=== PATIENT | female | born 1980 | race Caucasian/White ===

== ENCOUNTER 2020-07-09 15:03 | Emergency (ER) | payer OTHER ==
[~2020-07-09] VITALS: Ht 165.1 cm; Wt 86.4 kg
[2020-07-09 15:04] VITALS: BP 137/79
[2020-07-09] MEDS ORDERED: INHALER IH (15:07)
[2020-07-09] MEDS ORDERED: PredniSONE 20 MG TABLET PO ONE (15:30)
[2020-07-09] MEDS ORDERED: ALBUTEROL SULFATE HFA 90 MCG/PUFF 8 GM INHALER IH ONE (15:30)
[2020-07-09 17:21] LABS: COVID AG,FIA SOURCE NASOPHARYNGEAL
== END 2020-07-09 18:17 | disposition home or self-care (01) ==
LOC: EMS 15:04
DX: R05 Cough (principal); R06.02 Shortness of breath; R07.89 Other chest pain; J45.909 Unspecified asthma, uncomplicated; Z20.828 Contact with and (suspected) exposure to other viral communicable diseases
CPT/HCPCS: 71045; 87426; 94640; 99284; J7512; U0003; J3535

== ENCOUNTER 2022-11-06 14:05 | Emergency (ER) | payer MEDICAID, OTHER ==
[~2022-11-06] VITALS: Ht 154.9 cm; Wt 84.1 kg
[~2022-11-06 14:05] MED LIST: INHALER IH
[2022-11-06] MEDS ORDERED: ALBU8HFA IH (14:10)
[2022-11-06] MEDS ORDERED: PredniSONE 20 MG TABLET PO ONE (15:00)
[2022-11-06] MEDS ORDERED: ALBUTEROL SULFATE 2.5 MG/0.5 ML NEB SOLUTION NEB ONE (15:00)
[2022-11-06] MEDS ORDERED: ACETAMINOPHEN 500 MG TABLET PO ONE (15:00)
[2022-11-06] MEDS ORDERED: IPRATROPIUM BROMIDE 0.5 MG/2.5 ML NEB SOLUTION NEB ONE (15:00)
[2022-11-06 15:06] LABS: BASOPHILS % (AUTO) 0.9 % (0.0-2.0); HEMATOCRIT 37.2 % (36-46); HEMOGLOBIN 12.7 g/dL (12.0-16.0); LYMPHOCYTES # (AUTO) 5.2 K/uL (1.0-4.8); LYMPHOCYTES % (AUTO) 42.5 % (22.0-44.0); MEAN CORPUSCULAR HEMOGLOBIN 30.5 pg (26.0-34.0); MEAN CORPUSCULAR HGB CONC 34.1 G/dL (31.0-37.0); MEAN CORPUSCULAR VOLUME 90 fL (80-100); MONOCYTES # (AUTO) 0.7 K/uL (0.1-1.0); NEUTROPHILS # (AUTO) 5.8 K/uL (1.8-7.7); NEUTROPHILS % (AUTO) 47.6 % (40.0-70.0); PLATELET COUNT (AUTO) 369 K/uL (150-450); RED BLOOD CELL COUNT(AUTO) 4.16 MIL/uL (4.00-5.20); RED CELL DISTRIBUTION WIDTH 13.9 % (11.5-14.5)
[2022-11-06] MEDS ORDERED: 0.9% SODIUM CHLORIDE 5 ML NEB SOLUTION NEB ONE (15:18)
[2022-11-06 15:20] LABS: ANION GAP 8 mmol/L (8-16); CALCIUM, TOTAL 8.2 mg/dL (8.8-10.5); CARBON DIOXIDE 25 mmol/L (22-29); CHLORIDE 101 mmol/L (98-107); CREATININE 0.67 mg/dL (0.60-1.30); GLUCOSE,RANDOM 188 mg/dL (70-110); POTASSIUM 3.5 mmol/L (3.5-5.1); SODIUM SERUM 134 mmol/L (136-145); UREA NITROGEN, BLOOD 15 mg/dL (7-18)
[2022-11-06 15:27] LABS: ALANINE AMINOTRANSFERASE 55 U/L (12-78); ALBUMIN 3.1 g/dL (3.4-5.0); ALKALINE PHOSPHATASE 49 U/L (46-116); ASPARTATE AMINOTRANSFERASE 27 U/L (15-37); BILIRUBIN,TOTAL 0.7 mg/dL (0.1-1.0); CREATINE KINASE, TOTAL ONLY 29 U/L (26-192); TOTAL PROTEIN, SERUM 6.8 g/dL (6.4-8.2)
[2022-11-06 15:27] LABS: COVID AG,FIA SOURCE NASOPHARYNGEAL
[2022-11-06 15:28] LABS: GLOMERULAR FILTR. RATE CALC > 60 mL/min (>60)
[2022-11-06 15:29] LABS: B-TYPE NATRIURETIC PEPTIDE 11 pg/mL (0-100)
[2022-11-06 15:51] LABS: INFLUENZA TYPE A NEGATIVE FOR TYPE A (NEGATIVE); INFLUENZA TYPE B NEGATIVE FOR TYPE B (NEGATIVE)
[2022-11-06] MEDS ORDERED: PRED-554 PO (16:06)
[2022-11-06 16:15] LABS: HCG,QUANTITATIVE < 1 mIU/mL (0-6)
[2022-11-06] MEDS ORDERED: ALBUTEROL SULFATE HFA 90 MCG/PUFF 8 GM INHALER IH ONE (16:30)
[2022-11-06 16:31] VITALS: BP 143/72
== END 2022-11-06 16:52 | disposition home or self-care (01) ==
LOC: EMS 14:07
DX: J45.909 Unspecified asthma, uncomplicated (principal); Z98.890 Other specified postprocedural states; Z20.822 Contact with and (suspected) exposure to COVID-19
CPT/HCPCS: 99285; 71045; 87426; 80053; 82550; 83880; 84484; 84702; 85025; 87804; 36415; 94640; 93005; J7512; J3535; J7613

== ENCOUNTER 2022-12-26 17:21 | Emergency (ER) | payer MEDICAID ==
[~2022-12-26] VITALS: Ht 152.4 cm; Wt 81.8 kg
[~2022-12-26 17:21] MED LIST changes: +ALBU8HFA IH; -INHALER IH; +PRED-554 PO
[2022-12-26 17:41] LABS: GLUCOMETER DEV NAME(LOC) ERT.5; GLUCOSE,POINT OF CARE 287 MG/DL (70-110)
[2022-12-26] MEDS ORDERED: IOHEXOL 350 MG/ML 100 ML VIAL ONE ×2 (17:53→20:02)
[2022-12-26] MEDS ORDERED: SODIUM CHLORIDE 0.9% 100 ML ONE ×2 (17:53→20:02)
[2022-12-26 17:59] LABS: BASOPHILS % (AUTO) 1.1 % (0.0-2.0); EOSINOPHILS % (AUTO) 8.2 % (1.0-6.0); HEMATOCRIT 39.5 % (36-46); LYMPHOCYTES % (AUTO) 25.6 % (22.0-44.0); MEAN CORPUSCULAR HEMOGLOBIN 31.5 pg (26.0-34.0); MEAN CORPUSCULAR HGB CONC 35.5 G/dL (31.0-37.0); MEAN CORPUSCULAR VOLUME 89 fL (80-100); MONOCYTES # (AUTO) 0.8 K/uL (0.1-1.0); MONOCYTES % (AUTO) 10.2 % (2.0-9.0); NEUTROPHILS # (AUTO) 4.2 K/uL (1.8-7.7); NEUTROPHILS % (AUTO) 54.9 % (40.0-70.0); PLATELET COUNT (AUTO) 304 K/uL (150-450); RED BLOOD CELL COUNT(AUTO) 4.45 MIL/uL (4.00-5.20); RED CELL DISTRIBUTION WIDTH 13.5 % (11.5-14.5)
[2022-12-26 18:07] LABS: ANION GAP 15 mmol/L (8-16); CALCIUM, TOTAL 9.3 mg/dL (8.8-10.5); CARBON DIOXIDE 20 mmol/L (22-29); CHLORIDE 95 mmol/L (98-107); CREATININE 0.74 mg/dL (0.60-1.30); GLOMERULAR FILTR. RATE CALC > 60 mL/min (>60); GLUCOSE,RANDOM 321 mg/dL (70-110); POTASSIUM 4.6 mmol/L (3.5-5.1); SODIUM SERUM 130 mmol/L (136-145); UREA NITROGEN, BLOOD 13 mg/dL (7-18)
[2022-12-26 18:11] LABS: COVID AG,FIA SOURCE NASOPHARYNGEAL
[2022-12-26 18:20] LABS: ACETONE,BLOOD NEGATIVE (NEGATIVE)
[2022-12-26 18:27] LABS: ALBUMIN 3.6 g/dL (3.4-5.0); ALKALINE PHOSPHATASE 66 U/L (46-116); BILIRUBIN,TOTAL 1.2 mg/dL (0.1-1.0); HCG,QUANTITATIVE < 1 mIU/mL (0-6); LIPASE 65 U/L (73-393); PHOSPHORUS 3.3 mg/dL (2.5-4.9)
[2022-12-26] MEDS ORDERED: SODIUM CHLORIDE 0.9% 1,000 ML IV ONE (18:30)
[2022-12-26 18:50] LABS: ALANINE AMINOTRANSFERASE 126 U/L (12-78)
[2022-12-26 18:52] LABS: CHOL/HDL RATIO 9.3 (3.9-5.7); CHOLESTEROL 243 mg/dL (131-200); HDL CHOLESTEROL 26 mg/dL (40-60); TRIGLYCERIDES 1312 mg/dL (15-150)
[2022-12-26 19:03] LABS: INFLUENZA TYPE A NEGATIVE FOR TYPE A (NEGATIVE); INFLUENZA TYPE B NEGATIVE FOR TYPE B (NEGATIVE)
[2022-12-26 19:05] LABS: ASPARTATE AMINOTRANSFERASE 102 U/L (15-37)
[2022-12-26 21:01] LABS: APPEARANCE,URINE CLEAR (CLEAR); BILIRUBIN,URINE NEGATIVE (NEGATIVE); GLUCOSE, URINE (UA) >=1000 mg/dL (NEGATIVE); KETONES,URINE 40-60 mg/dL (NEGATIVE); LEUKOCYTE ESTERASE ,URINE NEGATIVE (NEGATIVE); NITRATE,URINE NEGATIVE (NEGATIVE); OCCULT BLOOD,URINE LARGE (NEGATIVE); PH,URINE 5.5 (5.0-8.0); PROTEIN,URINE 100-200,SEE CONFIRM mg/dL (NEGATIVE); SPECIFIC GRAVITIY, URINE 1.047 (1.003-1.030); UROBILINOGEN,URINE <=1.0 mg/dL (<=1.0)
[2022-12-26 21:24] LABS: BACTERIA,URINE Few /HPF (None Seen); COARSE GRANULAR CASTS,URINE 0-2 /LPF (None Seen); SQUAMOUS EPITHELIAL CELL,UR Few /LPF (None Seen); SULFOSALICYLIC ACID,URINE 1+ (Negative); WBC,URINE 0-2 /HPF (0-5)
[2022-12-26 21:41] LABS: GLUCOSE,POINT OF CARE 233 MG/DL (70-110)
[2022-12-26 22:25] VITALS: BP 132/80
== END 2022-12-26 22:30 | disposition home or self-care (01) ==
LOC: EMS 17:23
DX: R73.9 Hyperglycemia, unspecified (principal); E78.1 Pure hyperglyceridemia; J45.909 Unspecified asthma, uncomplicated; Z98.890 Other specified postprocedural states; Z20.822 Contact with and (suspected) exposure to COVID-19
CPT/HCPCS: 99285; 70450; 96360; 87426; 80061; 80053; 81001; 82009; 82550; 82962; 83605; 83690; 83735; 84100; 84484; 84702; 85025; 87804; 36415; 74177; 93005; Q9967; J7030; J7050; 81002

== ENCOUNTER 2023-01-26 15:37 | Emergency (ER) | payer MEDICAID ==
[~2023-01-26] VITALS: Ht 154.9 cm; Wt 81.8 kg
[~2023-01-26 15:37] MED LIST changes: +ALBU18HF12 IH; -ALBU8HFA IH
[2023-01-26] MEDS ORDERED: METF-1211 PO (15:48)
[2023-01-26 15:49] VITALS: BP 140/89
[2023-01-26 16:45] LABS: BASOPHILS % (AUTO) 0.7 % (0.0-2.0); EOSINOPHILS % (AUTO) 5.2 % (1.0-6.0); HEMATOCRIT 37.7 % (36-46); HEMOGLOBIN 12.8 g/dL (12.0-16.0); LYMPHOCYTES # (AUTO) 3.5 K/uL (1.0-4.8); LYMPHOCYTES % (AUTO) 45.6 % (22.0-44.0); MEAN CORPUSCULAR HEMOGLOBIN 30.6 pg (26.0-34.0); MEAN CORPUSCULAR VOLUME 90 fL (80-100); MONOCYTES # (AUTO) 0.8 K/uL (0.1-1.0); MONOCYTES % (AUTO) 9.7 % (2.0-9.0); NEUTROPHILS % (AUTO) 38.8 % (40.0-70.0); PLATELET COUNT (AUTO) 389 K/uL (150-450); RED BLOOD CELL COUNT(AUTO) 4.18 MIL/uL (4.00-5.20); RED CELL DISTRIBUTION WIDTH 13.2 % (11.5-14.5)
[2023-01-26 16:53] LABS: ANION GAP 11 mmol/L (8-16); CALCIUM, TOTAL 10.3 mg/dL (8.8-10.5); CARBON DIOXIDE 23 mmol/L (22-29); CHLORIDE 101 mmol/L (98-107); CREATININE 0.56 mg/dL (0.60-1.30); GLOMERULAR FILTR. RATE CALC > 60 mL/min (>60); GLUCOSE,RANDOM 123 mg/dL (70-110); SODIUM SERUM 135 mmol/L (136-145); UREA NITROGEN, BLOOD 18 mg/dL (7-18)
[2023-01-26 16:58] LABS: ALANINE AMINOTRANSFERASE 104 U/L (12-78); ALBUMIN 4.2 g/dL (3.4-5.0); ALKALINE PHOSPHATASE 47 U/L (46-116); ASPARTATE AMINOTRANSFERASE 61 U/L (15-37); BILIRUBIN,TOTAL 0.6 mg/dL (0.1-1.0); LIPASE 164 U/L (73-393)
[2023-01-26] MEDS ORDERED: MORPHINE SULFATE 2 MG/ML SYRINGE IVP ONE (19:30)
[2023-01-26] MEDS ORDERED: KETOROLAC TROMETHAMINE 30 MG/ML VIAL IVP ONE (19:30)
[2023-01-26] MEDS ORDERED: ONDANSETRON HCL 4 MG/2 ML VIAL IVP ONE (19:30)
[2023-01-26] MEDS ORDERED: FAMOTIDINE 10 MG/ML 2 ML VIAL IVP ONE (19:30)
[2023-01-26] MEDS ORDERED: MAG HYDROX/AL HYDROX/SIMETH 30 ML SUSP UDCUP PO ONE (19:30)
[2023-01-26] MEDS ORDERED: IOHEXOL 350 MG/ML 100 ML VIAL ONE (19:43)
[2023-01-26] MEDS ORDERED: SODIUM CHLORIDE 0.9% 100 ML ONE (19:43)
[2023-01-26 20:22] LABS: APPEARANCE,URINE HAZY (CLEAR); BILIRUBIN,URINE NEGATIVE (NEGATIVE); GLUCOSE, URINE (UA) NEGATIVE (NEGATIVE); KETONES,URINE TRACE mg/dL (NEGATIVE); LEUKOCYTE ESTERASE ,URINE MODERATE (NEGATIVE); NITRATE,URINE NEGATIVE (NEGATIVE); OCCULT BLOOD,URINE LARGE (NEGATIVE); PROTEIN,URINE 30-70 mg/dL (NEGATIVE); SPECIFIC GRAVITIY, URINE 1.025 (1.003-1.030); UROBILINOGEN,URINE <=1.0 mg/dL (<=1.0)
[2023-01-26 20:42] LABS: BACTERIA,URINE Moderate /HPF (None Seen); SQUAMOUS EPITHELIAL CELL,UR Many /LPF (None Seen)
[2023-01-26] MEDS ORDERED: CEPH-558 PO (21:33)
[2023-01-26] MEDS ORDERED: CefTRIAXone 1 GM/DEXTROSE 50 ML IV ONE (21:45)
[2023-01-26] MEDS ORDERED: CEPHALEXIN MONOHYDRATE 500 MG CAPSULE PO ONE (22:00)
== END 2023-01-26 22:30 | disposition home or self-care (01) ==
LOC: EMS 15:40
DX: N12 Tubulo-interstitial nephritis, not specified as acute or chronic (principal); J45.909 Unspecified asthma, uncomplicated; E11.9 Type 2 diabetes mellitus without complications; I10 Essential (primary) hypertension; Z98.890 Other specified postprocedural states
CPT/HCPCS: 99285; 74177; 96374; 96375; 76705; 80053; 81001; 82962; 83690; 84703; 85025; 36415; 87086; 87186; J0696; J3490; J1885; J2270; J2405; Q9967; J7050

== ENCOUNTER 2023-03-13 14:43 | Emergency (ER) | payer MEDICAID ==
[~2023-03-13] VITALS: Ht 152.4 cm; Wt 84.1 kg
[~2023-03-13 14:43] MED LIST changes: +CEPH-558 PO; +METF-1211 PO; -PRED-554 PO
[2023-03-13] MEDS ORDERED: GEMF-77 PO (14:54)
[2023-03-13] MEDS ORDERED: CIPR500T10 PO (14:54)
[2023-03-13] MEDS ORDERED: htn PO (14:56)
[2023-03-13] MEDS ORDERED: SODIUM CHLORIDE 0.9% 1,000 ML IV ONE (15:45)
[2023-03-13] MEDS ORDERED: FAMOTIDINE 40 MG in SODIUM CHLORIDE 0.9% 100 ML IV ONE (16:00)
[2023-03-13 17:27] LABS: BASOPHILS % (AUTO) 0.4 % (0.0-2.0); EOSINOPHILS % (AUTO) 3.4 % (1.0-6.0); HEMATOCRIT 40.9 % (36-46); HEMOGLOBIN 13.8 g/dL (12.0-16.0); LYMPHOCYTES # (AUTO) 3.6 K/uL (1.0-4.8); LYMPHOCYTES % (AUTO) 38.3 % (22.0-44.0); MEAN CORPUSCULAR HEMOGLOBIN 29.9 pg (26.0-34.0); MEAN CORPUSCULAR HGB CONC 33.7 G/dL (31.0-37.0); MEAN CORPUSCULAR VOLUME 89 fL (80-100); MONOCYTES # (AUTO) 0.9 K/uL (0.1-1.0); MONOCYTES % (AUTO) 9.1 % (2.0-9.0); NEUTROPHILS # (AUTO) 4.6 K/uL (1.8-7.7); NEUTROPHILS % (AUTO) 48.8 % (40.0-70.0); PLATELET COUNT (AUTO) 417 K/uL (150-450); RED BLOOD CELL COUNT(AUTO) 4.61 MIL/uL (4.00-5.20)
[2023-03-13 17:31] LABS: ANION GAP 11 mmol/L (8-16); CALCIUM, TOTAL 10.7 mg/dL (8.8-10.5); CARBON DIOXIDE 25 mmol/L (22-29); CHLORIDE 100 mmol/L (98-107); GLOMERULAR FILTR. RATE CALC > 60 mL/min (>60); GLUCOSE,RANDOM 139 mg/dL (70-110); SODIUM SERUM 136 mmol/L (136-145)
[2023-03-13 17:43] LABS: ALANINE AMINOTRANSFERASE 111 U/L (12-78); ALKALINE PHOSPHATASE 46 U/L (46-116); ASPARTATE AMINOTRANSFERASE 45 U/L (15-37); BILIRUBIN,TOTAL 0.8 mg/dL (0.1-1.0); HCG,QUANTITATIVE < 1 mIU/mL (0-6); LIPASE 122 U/L (73-393); TOTAL PROTEIN, SERUM 8.2 g/dL (6.4-8.2)
[2023-03-13 17:45] VITALS: BP 132/82
[2023-03-13 17:51] LABS: APPEARANCE,URINE TURBID (CLEAR); BILIRUBIN,URINE NEGATIVE (NEGATIVE); GLUCOSE, URINE (UA) NEGATIVE (NEGATIVE); LEUKOCYTE ESTERASE ,URINE LARGE (NEGATIVE); NITRATE,URINE NEGATIVE (NEGATIVE); OCCULT BLOOD,URINE SMALL (NEGATIVE); PH,URINE 5.5 (5.0-8.0); PROTEIN,URINE 30-70 mg/dL (NEGATIVE); SPECIFIC GRAVITIY, URINE 1.022 (1.003-1.030); UROBILINOGEN,URINE <=1.0 mg/dL (<=1.0)
[2023-03-13] MEDS ORDERED: CIPROFLOXACIN 400 MG/D5% WATER 200 ML IV ONE (18:15)
[2023-03-13 18:24] LABS: BACTERIA,URINE Few /HPF (None Seen); SQUAMOUS EPITHELIAL CELL,UR Moderate /LPF (None Seen)
== END 2023-03-13 19:48 | disposition home or self-care (01) ==
LOC: EMS 14:45
DX: R10.11 Right upper quadrant pain (principal); K59.00 Constipation, unspecified; N39.0 Urinary tract infection, site not specified; K29.70 Gastritis, unspecified, without bleeding
CPT/HCPCS: 99285; 96365; 76705; 96366; 80053; 81001; 83690; 84702; 85025; 36415; 87086; 87186; 74022; 93005; J0744; J3490; J7030; J7050

== ENCOUNTER 2023-11-07 22:19 | Emergency (ER) | payer MEDICAID ==
[~2023-11-07] VITALS: Ht 152.4 cm; Wt 81.8 kg
[~2023-11-07 22:19] MED LIST changes: -CEPH-558 PO; +CIPR500T10 PO; +GEMF-77 PO; +htn PO
[2023-11-07 22:26] VITALS: TEMP 98.8
[2023-11-07 22:46] LABS: GLUCOMETER DEV NAME(LOC) ER.6; GLUCOSE,POINT OF CARE 126 MG/DL (70-110)
[2023-11-07] MEDS ORDERED: ONDANSETRON HCL 4 MG TABLET PO ONE (23:00)
[2023-11-07] MEDS ORDERED: FAMOTIDINE 20 MG TABLET PO ONE (23:00)
[2023-11-07] MEDS ORDERED: ALBUTEROL SULFATE 2.5 MG/0.5 ML NEB SOLUTION NEB ONE (23:00)
[2023-11-07] MEDS ORDERED: MAG HYDROX/ALUMINUM HYD/SIMETH 30 ML SUSPENSION UDCUP PO ONE (23:00)
[2023-11-07] MEDS ORDERED: IPRATROPIUM BROMIDE 0.5 MG/2.5 ML NEB SOLUTION NEB ONE (23:00)
[2023-11-07] MEDS ORDERED: ACETAMINOPHEN 500 MG TABLET PO ONE (23:00)
[2023-11-07 23:14] LABS: BASOPHILS % (AUTO) 0.8 % (0.0-2.0); EOSINOPHILS % (AUTO) 7.8 % (1.0-6.0); HEMATOCRIT 41.1 % (36-46); LYMPHOCYTES # (AUTO) 4.6 K/uL (1.0-4.8); LYMPHOCYTES % (AUTO) 41.1 % (22.0-44.0); MEAN CORPUSCULAR HEMOGLOBIN 29.8 pg (26.0-34.0); MEAN CORPUSCULAR VOLUME 88 fL (80-100); MONOCYTES % (AUTO) 9.2 % (2.0-9.0); NEUTROPHILS # (AUTO) 4.6 K/uL (1.8-7.7); NEUTROPHILS % (AUTO) 41.1 % (40.0-70.0); PLATELET COUNT (AUTO) 397 K/uL (150-450); RED BLOOD CELL COUNT(AUTO) 4.69 MIL/uL (4.00-5.20); RED CELL DISTRIBUTION WIDTH 13.4 % (11.5-14.5); WHITE BLOOD COUNT (AUTO) 11.1 K/uL (4.5-11.0)
[2023-11-07] MEDS ORDERED: PredniSONE 20 MG TABLET PO ONE (23:15)
[2023-11-07 23:20] VITALS: PULSE 87; RESP 20; O2SAT 95
[2023-11-07 23:24] LABS: ANION GAP 14 mmol/L (8-16); CARBON DIOXIDE 22 mmol/L (22-29); CHLORIDE 102 mmol/L (98-107); GLOMERULAR FILTR. RATE CALC > 60 mL/min (>60); GLUCOSE,RANDOM 125 mg/dL (70-110); POTASSIUM 3.8 mmol/L (3.5-5.1); SODIUM SERUM 138 mmol/L (136-145); UREA NITROGEN, BLOOD 12 mg/dL (7-18)
[2023-11-07 23:30] LABS: ALANINE AMINOTRANSFERASE 47 U/L (12-78); ALBUMIN 3.9 g/dL (3.4-5.0); ALKALINE PHOSPHATASE 38 U/L (46-116); ASPARTATE AMINOTRANSFERASE 18 U/L (15-37); BILIRUBIN,TOTAL 0.7 mg/dL (0.1-1.0); TOTAL PROTEIN, SERUM 7.7 g/dL (6.4-8.2)
[2023-11-07 23:32] LABS: TROPONIN I-HIGH SENSITIVITY 8 ng/L (<51)
[2023-11-07 23:52] LABS: B-TYPE NATRIURETIC PEPTIDE < 5 pg/mL (0-100); LIPASE 46 U/L (16-77)
[2023-11-08 01:21] VITALS: BP 110/65; PULSE 88; RESP 18
== END 2023-11-08 01:23 | disposition home or self-care (01) ==
LOC: EMS 22:20
DX: R11.2 Nausea with vomiting, unspecified (principal); R07.89 Other chest pain; J45.909 Unspecified asthma, uncomplicated; E11.9 Type 2 diabetes mellitus without complications; E78.00 Pure hypercholesterolemia, unspecified; I10 Essential (primary) hypertension; Z98.890 Other specified postprocedural states
CPT/HCPCS: 99285; 71045; 80053; 82962; 83690; 83880; 84484; 84703; 85025; 36415; 93005; Q0162; J7613

== ENCOUNTER 2024-03-31 21:46 | Emergency (ER) | payer MEDICAID ==
[~2024-03-31] VITALS: Ht 152.4 cm; Wt 81.8 kg
[2024-03-31 21:57] VITALS: TEMP 97.9
[2024-03-31] MEDS ORDERED: DULO-113 PO (21:59)
[2024-03-31] MEDS ORDERED: SEMA1PEN3 SQ (21:59)
[2024-03-31] MEDS ORDERED: ATOR40TA71 PO (21:59)
[2024-03-31] MEDS ORDERED: LISI5TAB21 PO (21:59)
[2024-03-31 22:51] LABS: BASOPHILS % (AUTO) 1.2 % (0.0-2.0); EOSINOPHILS % (AUTO) 5.9 % (1.0-6.0); HEMATOCRIT 35.1 % (36-46); HEMOGLOBIN 12.1 g/dL (12.0-16.0); LYMPHOCYTES # (AUTO) 4.6 K/uL (1.0-4.8); LYMPHOCYTES % (AUTO) 40.9 % (22.0-44.0); MEAN CORPUSCULAR HEMOGLOBIN 30.7 pg (26.0-34.0); MEAN CORPUSCULAR HGB CONC 34.6 G/dL (31.0-37.0); MEAN CORPUSCULAR VOLUME 89 fL (80-100); MONOCYTES # (AUTO) 0.9 K/uL (0.1-1.0); MONOCYTES % (AUTO) 7.8 % (2.0-9.0); NEUTROPHILS % (AUTO) 44.2 % (40.0-70.0); PLATELET COUNT (AUTO) 345 K/uL (150-450); RED BLOOD CELL COUNT(AUTO) 3.96 MIL/uL (4.00-5.20); RED CELL DISTRIBUTION WIDTH 13.3 % (11.5-14.5); WHITE BLOOD COUNT (AUTO) 11.3 K/uL (4.5-11.0)
[2024-03-31 22:56] LABS: ANION GAP 13 mmol/L (8-16); CALCIUM, TOTAL 8.5 mg/dL (8.8-10.5); CARBON DIOXIDE 23 mmol/L (22-29); CHLORIDE 104 mmol/L (98-107); CREATININE 0.72 mg/dL (0.60-1.30); GLOMERULAR FILTR. RATE CALC > 60 mL/min (>60); GLUCOSE,RANDOM 156 mg/dL (70-110); POTASSIUM 3.5 mmol/L (3.5-5.1); SODIUM SERUM 140 mmol/L (136-145); UREA NITROGEN, BLOOD 7 mg/dL (7-18)
[2024-03-31 23:07] LABS: HCG,QUANTITATIVE 1 mIU/mL (0-6); LIPASE 37 U/L (16-77)
[2024-04-01] MEDS: ONDANSETRON HCL 4 MG/2 ML VIAL IVP ONE (00:08)
[2024-04-01] MEDS: KETOROLAC TROMETHAMINE 30 MG/ML VIAL IVP ONE (00:09)
[2024-04-01] MEDS: SODIUM CHLORIDE 0.9% 1,000 ML IV ONE (00:09)
[2024-04-01] MEDS: DIPHENOXYLATE/ATROP 2.5-0.025 MG TABLET PO ONE (00:09)
[2024-04-01] MEDS: POTASSIUM CHLORIDE 20 MEQ ER TABLET PO ONE (00:15)
[2024-04-01] MEDS ORDERED: DIPH-1130 PO (01:11)
[2024-04-01] MEDS ORDERED: ONDA-104 PO (01:11)
[2024-04-01] MEDS ORDERED: ACET-66 PO (01:11)
[2024-04-01 01:40] VITALS: BP 138/88; PULSE 84; RESP 16
== END 2024-04-01 01:41 | disposition home or self-care (01) ==
LOC: EMS 21:59
DX: R19.7 Diarrhea, unspecified (principal); E11.43 Type 2 diabetes mellitus with diabetic autonomic (poly)neuropathy; K31.84 Gastroparesis; E11.40 Type 2 diabetes mellitus with diabetic neuropathy, unspecified; J45.909 Unspecified asthma, uncomplicated; E11.9 Type 2 diabetes mellitus without complications; I10 Essential (primary) hypertension
CPT/HCPCS: 99284; 80048; 83690; 84702; 85025; 36415; 96374; 96361; 96375; J1885; J2405; J7030

== ENCOUNTER 2024-06-19 04:08 | Emergency (ER) | payer MEDICAID ==
[~2024-06-19] VITALS: Ht 152.4 cm; Wt 81.8 kg
[~2024-06-19 04:08] MED LIST changes: +ACET-66 PO; +ATOR40TA71 PO; -CIPR500T10 PO; +DIPH-1130 PO; +DULO-113 PO; -GEMF-77 PO; +LISI5TAB21 PO; +ONDA-104 PO; +SEMA1PEN3 SQ
[2024-06-19 04:10] VITALS: TEMP 97.8
[2024-06-19 05:33] LABS: BASOPHILS % (AUTO) 0.7 % (0.0-2.0); EOSINOPHILS % (AUTO) 5.1 % (1.0-6.0); HEMATOCRIT 38.7 % (36-46); HEMOGLOBIN 13.3 g/dL (12.0-16.0); LYMPHOCYTES # (AUTO) 3.9 K/uL (1.0-4.8); LYMPHOCYTES % (AUTO) 35.4 % (22.0-44.0); MEAN CORPUSCULAR HGB CONC 34.4 G/dL (31.0-37.0); MEAN CORPUSCULAR VOLUME 90 fL (80-100); MONOCYTES # (AUTO) 1.2 K/uL (0.1-1.0); MONOCYTES % (AUTO) 10.9 % (2.0-9.0); NEUTROPHILS # (AUTO) 5.3 K/uL (1.8-7.7); NEUTROPHILS % (AUTO) 47.9 % (40.0-70.0); PLATELET COUNT (AUTO) 311 K/uL (150-450); RED CELL DISTRIBUTION WIDTH 13.8 % (11.5-14.5)
[2024-06-19] MEDS: SODIUM CHLORIDE 0.9% 1,000 ML IV ONE (05:42)
[2024-06-19 05:44] LABS: ANION GAP 15 mmol/L (8-16); CARBON DIOXIDE 21 mmol/L (22-29); CHLORIDE 99 mmol/L (98-107); CREATININE 0.71 mg/dL (0.60-1.30); GLOMERULAR FILTR. RATE CALC > 60 mL/min (>60); GLUCOSE,RANDOM 237 mg/dL (70-110); POTASSIUM 3.8 mmol/L (3.5-5.1); SODIUM SERUM 135 mmol/L (136-145); UREA NITROGEN, BLOOD 13 mg/dL (7-18)
[2024-06-19 05:47] LABS: ACETONE,BLOOD NEGATIVE (NEGATIVE)
[2024-06-19 05:49] LABS: ALANINE AMINOTRANSFERASE 64 U/L (12-78); ALBUMIN 3.6 g/dL (3.4-5.0); ALKALINE PHOSPHATASE 43 U/L (46-116); ASPARTATE AMINOTRANSFERASE 24 U/L (15-37); BILIRUBIN,TOTAL 0.7 mg/dL (0.1-1.0); TOTAL PROTEIN, SERUM 7.4 g/dL (6.4-8.2)
[2024-06-19] MEDS: ONDANSETRON 4 MG TABLET PO ONE (05:54)
[2024-06-19 06:53] VITALS: BP 145/76; PULSE 81; RESP 16; O2SAT 94
== END 2024-06-19 09:08 | disposition home or self-care (01) ==
LOC: EMS 04:08
DX: E11.40 Type 2 diabetes mellitus with diabetic neuropathy, unspecified (principal); R10.9 Unspecified abdominal pain; J45.909 Unspecified asthma, uncomplicated; I10 Essential (primary) hypertension
CPT/HCPCS: 99284; 96360; 76705; 80053; 82009; 84703; 85025; 36415; 82962; Q0162; J7030

== ENCOUNTER 2024-11-17 20:22 | Emergency (ER) | payer MEDICAID ==
[~2024-11-17] VITALS: Ht 152.4 cm; Wt 88.6 kg
[2024-11-17 20:52] VITALS: BP 148/93; PULSE 87; RESP 16; TEMP 98.8; O2SAT 98
[2024-11-17 21:47] LABS: BASOPHILS % (AUTO) 0.7 % (0.0-2.0); EOSINOPHILS % (AUTO) 3.7 % (1.0-6.0); HEMATOCRIT 40.7 % (36-46); HEMOGLOBIN 13.7 g/dL (12.0-16.0); LYMPHOCYTES # (AUTO) 3.5 K/uL (1.0-4.8); LYMPHOCYTES % (AUTO) 28.6 % (22.0-44.0); MEAN CORPUSCULAR HEMOGLOBIN 29.9 pg (26.0-34.0); MEAN CORPUSCULAR HGB CONC 33.6 G/dL (31.0-37.0); MEAN CORPUSCULAR VOLUME 89 fL (80-100); MONOCYTES % (AUTO) 8.2 % (2.0-9.0); NEUTROPHILS # (AUTO) 7.2 K/uL (1.8-7.7); NEUTROPHILS % (AUTO) 58.8 % (40.0-70.0); PLATELET COUNT (AUTO) 331 K/uL (150-450); RED BLOOD CELL COUNT(AUTO) 4.57 MIL/uL (4.00-5.20); RED CELL DISTRIBUTION WIDTH 14.3 % (11.5-14.5); WHITE BLOOD COUNT (AUTO) 12.2 K/uL (4.5-11.0)
[2024-11-17 21:58] LABS: ANION GAP 10 mmol/L (8-16); CALCIUM, TOTAL 9.1 mg/dL (8.8-10.5); CARBON DIOXIDE 25 mmol/L (22-29); CHLORIDE 104 mmol/L (98-107); CREATININE 0.81 mg/dL (0.60-1.30); GLOMERULAR FILTR. RATE CALC > 60 mL/min (>60); GLUCOSE,RANDOM 144 mg/dL (70-110); POTASSIUM 3.7 mmol/L (3.5-5.1); SODIUM SERUM 139 mmol/L (136-145); UREA NITROGEN, BLOOD 10 mg/dL (7-18)
[2024-11-17 22:04] LABS: ALANINE AMINOTRANSFERASE 47 U/L (12-78); ALBUMIN 3.5 g/dL (3.4-5.0); ALKALINE PHOSPHATASE 45 U/L (46-116); ASPARTATE AMINOTRANSFERASE 23 U/L (15-37); BILIRUBIN,TOTAL 0.6 mg/dL (0.1-1.0); TOTAL PROTEIN, SERUM 7.5 g/dL (6.4-8.2)
[2024-11-17 22:14] LABS: ALANINE AMINOTRANSFERASE 50 U/L (12-78); ALBUMIN 3.5 g/dL (3.4-5.0); ALKALINE PHOSPHATASE 46 U/L (46-116); AMYLASE 40 U/L (25-115); ASPARTATE AMINOTRANSFERASE 25 U/L (15-37); BILIRUBIN,TOTAL 0.6 mg/dL (0.1-1.0); LIPASE 31 U/L (16-77); TOTAL PROTEIN, SERUM 7.6 g/dL (6.4-8.2)
[2024-11-17 22:32] LABS: HCG,QUANTITATIVE < 1 mIU/mL (0-6)
[2024-11-20] MEDS ORDERED: IBUP-1492 PO (04:42)
[2024-11-20] MEDS ORDERED: CEPH-558 PO (04:42)
[2024-11-20] MEDS ORDERED: FLUC150T61 PO (04:52)
== END 2024-11-17 23:48 | disposition left against medical advice (07) ==
LOC: EMS 20:22
DX: R10.11 Right upper quadrant pain (principal); Z53.21 Procedure and treatment not carried out due to patient leaving prior to being seen by health care provider
CPT/HCPCS: 80053; 82150; 82248; 83690; 84702; 85025

== ENCOUNTER → 2024-11-20 | Emergency (ER) | payer MEDICAID ==
[~2024-11-20] VITALS: Ht 152.4 cm; Wt 84.1 kg
[~2024-11-20] MED LIST changes: +CEPH-558 PO; +FLUC150T61 PO; +IBUP-1492 PO
[2024-11-20 03:15] VITALS: TEMP 97.9
[2024-11-20 03:49] LABS: BASOPHILS % (AUTO) 0.6 % (0.0-2.0); EOSINOPHILS % (AUTO) 3.5 % (1.0-6.0); HEMATOCRIT 39.9 % (36-46); HEMOGLOBIN 13.5 g/dL (12.0-16.0); LYMPHOCYTES # (AUTO) 4.5 K/uL (1.0-4.8); LYMPHOCYTES % (AUTO) 36.7 % (22.0-44.0); MEAN CORPUSCULAR HEMOGLOBIN 29.9 pg (26.0-34.0); MEAN CORPUSCULAR HGB CONC 33.8 G/dL (31.0-37.0); MEAN CORPUSCULAR VOLUME 89 fL (80-100); NEUTROPHILS # (AUTO) 6.3 K/uL (1.8-7.7); NEUTROPHILS % (AUTO) 51.2 % (40.0-70.0); PLATELET COUNT (AUTO) 357 K/uL (150-450); RED CELL DISTRIBUTION WIDTH 14.2 % (11.5-14.5); WHITE BLOOD COUNT (AUTO) 12.3 K/uL (4.5-11.0)
[2024-11-20 04:08] LABS: APPEARANCE,URINE HAZY (CLEAR); BILIRUBIN,URINE NEGATIVE (NEGATIVE); COLOR,URINE YELLOW (YELLOW); GLUCOSE, URINE (UA) NEGATIVE (NEGATIVE); LEUKOCYTE ESTERASE ,URINE SMALL (NEGATIVE); NITRATE,URINE NEGATIVE (NEGATIVE); OCCULT BLOOD,URINE LARGE (NEGATIVE); PH,URINE 5.5 (5.0-8.0); PH,URINE DRUG SCREEN 5.5 (5.0-8.0); PROTEIN,URINE 100-200,SEE CONFIRM mg/dL (NEGATIVE); SPECIFIC GRAVITIY, URINE 1.033 (1.003-1.030); UROBILINOGEN,URINE <=1.0 mg/dL (<=1.0)
[2024-11-20 04:11] LABS: ANION GAP 15 mmol/L (8-16); CALCIUM, TOTAL 9.2 mg/dL (8.8-10.5); CARBON DIOXIDE 22 mmol/L (22-29); CHLORIDE 101 mmol/L (98-107); CREATININE 0.82 mg/dL (0.60-1.30); GLOMERULAR FILTR. RATE CALC > 60 mL/min (>60); GLUCOSE,RANDOM 178 mg/dL (70-110); POTASSIUM 3.8 mmol/L (3.5-5.1); SODIUM SERUM 138 mmol/L (136-145); UREA NITROGEN, BLOOD 16 mg/dL (7-18)
[2024-11-20 04:14] LABS: ALCOHOL, URINE DRUG SCREEN NEGATIVE (NEGATIVE); AMPHET/METH SCREEN,URINE NEGATIVE (NEGATIVE); BARBITURATE SCREEN, URINE NEGATIVE (NEGATIVE); BENZODIAZEPINES SCREEN,URINE NEGATIVE (NEGATIVE); CANNABINOID SCREEN,URINE NEGATIVE (NEGATIVE); COCAINE SCREEN,URINE NEGATIVE (NEGATIVE); METHADONE SCREEN, URINE NEGATIVE (NEGATIVE); OPIATE SCREEN,URINE NEGATIVE (NEGATIVE); PHENCYCLIDINE SCREEN,URINE NEGATIVE (NEGATIVE)
[2024-11-20 04:17] LABS: ALANINE AMINOTRANSFERASE 52 U/L (12-78); ALBUMIN 3.6 g/dL (3.4-5.0); ALKALINE PHOSPHATASE 41 U/L (46-116); ASPARTATE AMINOTRANSFERASE 23 U/L (15-37); BILIRUBIN,TOTAL 0.7 mg/dL (0.1-1.0); TOTAL PROTEIN, SERUM 7.7 g/dL (6.4-8.2)
[2024-11-20 04:24] LABS: SULFOSALICYLIC ACID,URINE 2+ (Negative)
[2024-11-20 04:25] LABS: AMORPHOUS SEDIMENT,UR Moderate /LPF (None Seen); BACTERIA,URINE Few /HPF (None Seen); SQUAMOUS EPITHELIAL CELL,UR Few /LPF (None Seen); WBC,URINE 0-2 /HPF (0-5)
[2024-11-20] MEDS: KETOROLAC TROMETHAMINE 60 MG/2 ML VIAL IM ONE (04:45)
[2024-11-20] MEDS: CEPHALEXIN MONOHYDRATE 500 MG CAPSULE PO ONE (04:45)
[2024-11-20 04:55] VITALS: BP 120/79; PULSE 79; RESP 15; O2SAT 98
== END | disposition home or self-care (01) ==
LOC: EMS 03:12
DX: N39.0 Urinary tract infection, site not specified (principal); R31.9 Hematuria, unspecified; J45.909 Unspecified asthma, uncomplicated; E11.9 Type 2 diabetes mellitus without complications; I10 Essential (primary) hypertension; E78.00 Pure hypercholesterolemia, unspecified; Z87.440 Personal history of urinary (tract) infections; Z87.19 Personal history of other diseases of the digestive system; Z79.85 Long-term (current) use of injectable non-insulin antidiabetic drugs; Z79.899 Other long term (current) drug therapy
CPT/HCPCS: 99283; 80048; 80076; 81001; 85025; 36415; 96372; 80307; J1885; 81002

== ENCOUNTER 2025-01-12 22:22 | Emergency (ER) | payer MEDICAID ==
[~2025-01-12] VITALS: Ht 152.4 cm; Wt 84.1 kg
[~2025-01-12 22:22] MED LIST changes: -DULO-113 PO; +DULO60CA98 PO
[2025-01-12 22:45] VITALS: TEMP 98.1
[2025-01-13] MEDS: LIDOCAINE 5% TRANSDERMAL PATCH TD ONE (01:23)
[2025-01-13] MEDS: KETOROLAC TROMETHAMINE 30 MG/ML VIAL IM ONE (01:23)
[2025-01-13] MEDS ORDERED: CYCL-448 PO (03:45)
[2025-01-13] MEDS ORDERED: LIDO700A15 TP (03:45)
[2025-01-13 04:27] LABS: APPEARANCE,URINE HAZY (CLEAR); BILIRUBIN,URINE NEGATIVE (NEGATIVE); COLOR,URINE YELLOW (YELLOW); GLUCOSE, URINE (UA) >=1000 mg/dL (NEGATIVE); HCG,QUAL URINE NEGATIVE (NEGATIVE); LEUKOCYTE ESTERASE ,URINE SMALL (NEGATIVE); NITRATE,URINE NEGATIVE (NEGATIVE); OCCULT BLOOD,URINE NEGATIVE (NEGATIVE); PROTEIN,URINE 30-70 mg/dL (NEGATIVE); SPECIFIC GRAVITIY, URINE 1.032 (1.003-1.030); UROBILINOGEN,URINE <=1.0 mg/dL (<=1.0)
[2025-01-13 04:35] LABS: AMORPHOUS SEDIMENT,UR Moderate /LPF (None Seen); BACTERIA,URINE None Seen /HPF (None Seen); RBC,URINE None Seen /HPF (0-2); SQUAMOUS EPITHELIAL CELL,UR Moderate /LPF (None Seen); WBC,URINE 0-2 /HPF (0-5)
[2025-01-13 04:36] LABS: COARSE GRANULAR CASTS,URINE 0-2 /LPF (None Seen)
[2025-01-13 04:44] VITALS: BP 131/79; PULSE 79; RESP 16; O2SAT 98
== END 2025-01-13 04:51 | disposition home or self-care (01) ==
LOC: EMS 22:27
DX: M54.50 Low back pain, unspecified (principal); E11.9 Type 2 diabetes mellitus without complications; J45.909 Unspecified asthma, uncomplicated; I10 Essential (primary) hypertension; E78.00 Pure hypercholesterolemia, unspecified; Z79.85 Long-term (current) use of injectable non-insulin antidiabetic drugs; Z87.440 Personal history of urinary (tract) infections; Z87.19 Personal history of other diseases of the digestive system; Z79.899 Other long term (current) drug therapy
CPT/HCPCS: 99285; 81001; 84703; 72100; 96372; J1885

== ENCOUNTER 2025-03-11 00:55 | Emergency (ER) | payer MEDICAID ==
[~2025-03-11] VITALS: Ht 152.4 cm; Wt 84.1 kg
[~2025-03-11 00:55] MED LIST changes: +CYCL-448 PO; +LIDO-57 TP
[2025-03-11 01:31] LABS: BASOPHILS % (AUTO) 0.8 % (0.0-2.0); HEMATOCRIT 39.6 % (36-46); HEMOGLOBIN 13.4 g/dL (12.0-16.0); LYMPHOCYTES # (AUTO) 4.1 K/uL (1.0-4.8); LYMPHOCYTES % (AUTO) 33.8 % (22.0-44.0); MEAN CORPUSCULAR HEMOGLOBIN 29.6 pg (26.0-34.0); MEAN CORPUSCULAR HGB CONC 33.9 G/dL (31.0-37.0); MEAN CORPUSCULAR VOLUME 88 fL (80-100); MONOCYTES # (AUTO) 1.2 K/uL (0.1-1.0); MONOCYTES % (AUTO) 10.1 % (2.0-9.0); NEUTROPHILS # (AUTO) 6.4 K/uL (1.8-7.7); NEUTROPHILS % (AUTO) 52.3 % (40.0-70.0); PLATELET COUNT (AUTO) 395 K/uL (150-450); RED BLOOD CELL COUNT(AUTO) 4.53 MIL/uL (4.00-5.20); RED CELL DISTRIBUTION WIDTH 13.5 % (11.5-14.5); WHITE BLOOD COUNT (AUTO) 12.3 K/uL (4.5-11.0)
[2025-03-11 01:40] LABS: ANION GAP 12 mmol/L (8-16); CALCIUM, TOTAL 9.4 mg/dL (8.8-10.5); CARBON DIOXIDE 24 mmol/L (22-29); CHLORIDE 101 mmol/L (98-107); CREATININE 0.79 mg/dL (0.60-1.30); GLOMERULAR FILTR. RATE CALC > 60 mL/min (>60); GLUCOSE,RANDOM 172 mg/dL (70-110); SODIUM SERUM 137 mmol/L (136-145); UREA NITROGEN, BLOOD 13 mg/dL (7-18)
[2025-03-11 01:51] LABS: ALANINE AMINOTRANSFERASE 64 U/L (12-78); ALBUMIN 3.6 g/dL (3.4-5.0); ALKALINE PHOSPHATASE 53 U/L (46-116); ASPARTATE AMINOTRANSFERASE 29 U/L (15-37); BILIRUBIN,TOTAL 1.2 mg/dL (0.1-1.0); HCG,QUANTITATIVE < 1 mIU/mL (0-6); TOTAL PROTEIN, SERUM 7.7 g/dL (6.4-8.2)
[2025-03-11 02:25] VITALS: TEMP 98.4
[2025-03-11 04:09] LABS: APPEARANCE,URINE CLEAR (CLEAR); BILIRUBIN,URINE NEGATIVE (NEGATIVE); COLOR,URINE COLORLESS (YELLOW); GLUCOSE, URINE (UA) NEGATIVE (NEGATIVE); KETONES,URINE NEGATIVE (NEGATIVE); LEUKOCYTE ESTERASE ,URINE TRACE (NEGATIVE); NITRATE,URINE NEGATIVE (NEGATIVE); OCCULT BLOOD,URINE NEGATIVE (NEGATIVE); PROTEIN,URINE NEGATIVE (NEGATIVE); SPECIFIC GRAVITIY, URINE 1.003 (1.003-1.030); UROBILINOGEN,URINE <=1.0 mg/dL (<=1.0)
[2025-03-11 04:25] LABS: BACTERIA,URINE None Seen /HPF (None Seen); RBC,URINE None Seen /HPF (0-2); SQUAMOUS EPITHELIAL CELL,UR Few /LPF (None Seen); WBC,URINE 0-2 /HPF (0-5)
[2025-03-11 04:30] VITALS: BP 126/69; PULSE 73; RESP 16; O2SAT 98
[2025-03-11] MEDS ORDERED: POLY119P3 PO (05:51)
== END 2025-03-11 09:08 | disposition home or self-care (01) ==
LOC: EMS 00:55
DX: N83.201 Unspecified ovarian cyst, right side (principal); K59.00 Constipation, unspecified; J45.909 Unspecified asthma, uncomplicated; I10 Essential (primary) hypertension; E11.9 Type 2 diabetes mellitus without complications; E78.00 Pure hypercholesterolemia, unspecified; R10.2 Pelvic and perineal pain; Z79.85 Long-term (current) use of injectable non-insulin antidiabetic drugs; Z87.19 Personal history of other diseases of the digestive system; Z87.440 Personal history of urinary (tract) infections; Z79.899 Other long term (current) drug therapy
CPT/HCPCS: 74018; 74176; 76856; 80048; 80076; 81001; 82962; 84702; 85025; 99284; 36415-L1; 36415-TC

== ENCOUNTER 2025-04-20 10:25 | Emergency (ER) | payer MEDICAID ==
[~2025-04-20] VITALS: Ht 157.5 cm; Wt 81.8 kg
[~2025-04-20 10:25] MED LIST changes: +POLY119P3 PO
[2025-04-20] MEDS ORDERED: LISI20TA24 PO (10:33)
[2025-04-20] MEDS ORDERED: SEMA2PEN SQ (10:33)
[2025-04-20] MEDS ORDERED: ATOR-2 PO (10:33)
[2025-04-20] MEDS ORDERED: SITA100 PO (10:33)
[2025-04-20] MEDS ORDERED: GLIM1TAB56 PO (10:33)
[2025-04-20] MEDS: SODIUM CHLORIDE 0.9% 1,000 ML IV ONE (10:59)
[2025-04-20 11:00] LABS: PLATELET COUNT (AUTO) 336 K/uL (150-450); RED BLOOD CELL COUNT(AUTO) 4.72 MIL/uL (4.00-5.20); RED CELL DISTRIBUTION WIDTH 13.6 % (11.5-14.5); WHITE BLOOD COUNT (AUTO) 8.8 K/uL (4.5-11.0)
[2025-04-20 11:10] LABS: CALCIUM, TOTAL 9.8 mg/dL (8.8-10.5); CREATININE 0.76 mg/dL (0.60-1.30); GLOMERULAR FILTR. RATE CALC > 60 mL/min (>60); GLUCOSE,RANDOM 275 mg/dL (70-110); SODIUM SERUM 134 mmol/L (136-145); UREA NITROGEN, BLOOD 10 mg/dL (7-18)
[2025-04-20 11:16] LABS: ASPARTATE AMINOTRANSFERASE 41.0 U/L (15-37); TOTAL PROTEIN, SERUM 8.1 g/dL (6.4-8.2)
[2025-04-20] MEDS: MAGNESIUM SULFATE 1 GM in DEXTROSE 5%-WATER 50 ML IV ONE (12:56)
[2025-04-20 13:02] LABS: APPEARANCE,URINE CLEAR (CLEAR); GLUCOSE, URINE (UA) 300-500 mg/dL (NEGATIVE); LEUKOCYTE ESTERASE ,URINE NEGATIVE (NEGATIVE); NITRATE,URINE NEGATIVE (NEGATIVE); OCCULT BLOOD,URINE TRACE (NEGATIVE); SPECIFIC GRAVITIY, URINE 1.012 (1.003-1.030)
[2025-04-20 13:26] LABS: SQUAMOUS EPITHELIAL CELL,UR Few /LPF (None Seen)
[2025-04-20 14:30] VITALS: BP 117/62; PULSE 92; RESP 18; TEMP 98.405312; O2SAT 98
== END 2025-04-20 15:16 | disposition home or self-care (01) ==
LOC: EMS 10:29
DX: R11.2 Nausea with vomiting, unspecified (principal); E83.42 Hypomagnesemia; E11.65 Type 2 diabetes mellitus with hyperglycemia; E78.00 Pure hypercholesterolemia, unspecified; J45.909 Unspecified asthma, uncomplicated; I10 Essential (primary) hypertension; Z87.19 Personal history of other diseases of the digestive system; Z79.85 Long-term (current) use of injectable non-insulin antidiabetic drugs; Z79.899 Other long term (current) drug therapy
CPT/HCPCS: 99284; 96365; 96361; 96366; 80048; 80076; 81001; 82962; 83690; 83735; 84703; 85025; 36415; J7060; J3475; J7030

== ENCOUNTER 2025-05-03 13:26 | Emergency (ER) | payer MEDICAID ==
[~2025-05-03] VITALS: Ht 153 cm; Wt 84.1 kg
[~2025-05-03 13:26] MED LIST changes: -ACET-66 PO; +ATOR-2 PO; -ATOR40TA71 PO; -CEPH-558 PO; -CYCL-448 PO; -DIPH-1130 PO; -FLUC150T61 PO; +GLIM1TAB56 PO; -IBUP-1492 PO; -LIDO-57 TP; +LISI20TA24 PO; -LISI5TAB21 PO; -METF-1211 PO; -ONDA-104 PO; -POLY119P3 PO; -SEMA1PEN3 SQ; +SEMA2PEN SQ; +SITA100 PO; -htn PO
[2025-05-03 13:40] VITALS: TEMP 98.1
[2025-05-03 13:56] LABS: GLUCOMETER DEV NAME(LOC) ER.7; GLUCOSE,POINT OF CARE 264 MG/DL (70-110)
[2025-05-03 14:48] LABS: PLATELET COUNT (AUTO) 295 K/uL (150-450); RED BLOOD CELL COUNT(AUTO) 4.70 MIL/uL (4.00-5.20); RED CELL DISTRIBUTION WIDTH 13.6 % (11.5-14.5); WHITE BLOOD COUNT (AUTO) 9.2 K/uL (4.5-11.0)
[2025-05-03 15:02] LABS: CALCIUM, TOTAL 9.9 mg/dL (8.8-10.5); CREATININE 0.82 mg/dL (0.60-1.30); GLOMERULAR FILTR. RATE CALC > 60 mL/min (>60); GLUCOSE,RANDOM 254 mg/dL (70-110); SODIUM SERUM 132 mmol/L (136-145); UREA NITROGEN, BLOOD 9 mg/dL (7-18)
[2025-05-03 15:11] LABS: HCG,QUANTITATIVE < 1 mIU/mL (0-6)
[2025-05-03 15:55] LABS: APPEARANCE,URINE CLEAR (CLEAR); GLUCOSE, URINE (UA) 70-100 mg/dL (NEGATIVE); LEUKOCYTE ESTERASE ,URINE NEGATIVE (NEGATIVE); NITRATE,URINE NEGATIVE (NEGATIVE); OCCULT BLOOD,URINE NEGATIVE (NEGATIVE); SPECIFIC GRAVITIY, URINE 1.008 (1.003-1.030)
[2025-05-03 16:11] LABS: SQUAMOUS EPITHELIAL CELL,UR Few /LPF (None Seen)
[2025-05-03 16:20] LABS: ASPARTATE AMINOTRANSFERASE 30.0 U/L (15-37); TOTAL PROTEIN, SERUM 7.9 g/dL (6.4-8.2)
[2025-05-03] MEDS: MAG HYDROX/ALUMINUM HYD/SIMETH 30 ML SUSPENSION UDCUP PO ONE (16:37)
[2025-05-03] MEDS: SODIUM CHLORIDE 0.9% 1,000 ML IV ONE (16:37)
[2025-05-03] MEDS: FAMOTIDINE 20 MG/2 ML VIAL IVP ONE (16:38)
[2025-05-03 18:04] VITALS: BP 132/71; PULSE 75; RESP 16; O2SAT 98
== END 2025-05-03 18:05 | disposition home or self-care (01) ==
LOC: EMS 13:29
DX: R19.7 Diarrhea, unspecified (principal); R11.0 Nausea; E11.9 Type 2 diabetes mellitus without complications; E78.00 Pure hypercholesterolemia, unspecified; I10 Essential (primary) hypertension; J45.909 Unspecified asthma, uncomplicated; Z87.19 Personal history of other diseases of the digestive system; Z79.85 Long-term (current) use of injectable non-insulin antidiabetic drugs; Z98.890 Other specified postprocedural states; Z79.899 Other long term (current) drug therapy
CPT/HCPCS: 99283; 96374; 80048; 80076; 81001; 82150; 82962; 83690; 84702; 85025; 36415; J3490; J7030

== ENCOUNTER 2025-08-22 17:27 | Emergency (ER) | payer MEDICAID ==
[~2025-08-22] VITALS: Ht 152.4 cm; Wt 84.0 kg
[~2025-08-22 17:27] MED LIST changes: +DULO60CA73 PO; -DULO60CA98 PO
[2025-08-22 17:41] VITALS: BP 139/90; PULSE 76; RESP 18; TEMP 98.1; O2SAT 94
[2025-08-22 18:29] LABS: PLATELET COUNT (AUTO) 297 K/uL (150-450); RED BLOOD CELL COUNT(AUTO) 4.54 MIL/uL (4.00-5.20); RED CELL DISTRIBUTION WIDTH 13.2 % (11.5-14.5); WHITE BLOOD COUNT (AUTO) 8.4 K/uL (4.5-11.0)
[2025-08-22] MEDS: ACETAMINOPHEN 500 MG TABLET PO ONE (18:32)
[2025-08-22] MEDS: SODIUM CHLORIDE 0.9% 1,000 ML IV ONE (18:32)
[2025-08-22] MEDS: ONDANSETRON HCL 4 MG/2 ML VIAL IVP ONE (18:32)
[2025-08-22 18:36] LABS: CALCIUM, TOTAL 9.2 mg/dL (8.8-10.5); CREATININE 0.59 mg/dL (0.60-1.30); GLOMERULAR FILTR. RATE CALC > 60 mL/min (>60); GLUCOSE,RANDOM 230 mg/dL (70-110); SODIUM SERUM 129 mmol/L (136-145); UREA NITROGEN, BLOOD 8 mg/dL (7-18)
[2025-08-22 18:41] LABS: COVID AG,FIA SOURCE NASAL SWAB
[2025-08-22 18:45] LABS: TROPONIN I-HIGH SENSITIVITY 9 ng/L (<51)
[2025-08-22 18:50] LABS: APPEARANCE,URINE HAZY (CLEAR); GLUCOSE, URINE (UA) TRACE mg/dL (NEGATIVE); LEUKOCYTE ESTERASE ,URINE NEGATIVE (NEGATIVE); NITRATE,URINE NEGATIVE (NEGATIVE); OCCULT BLOOD,URINE TRACE (NEGATIVE); SPECIFIC GRAVITIY, URINE 1.030 (1.003-1.030)
[2025-08-22 19:00] LABS: GLUCOMETER DEV NAME(LOC) ERT.7; GLUCOSE,POINT OF CARE 227 MG/DL (70-110)
[2025-08-22 19:06] LABS: SARS-COV2 (COVID) ANTIGEN,FIA Negative (Negative)
[2025-08-22 19:07] LABS: INFLUENZA TYPE A NEGATIVE FOR TYPE A (NEGATIVE); INFLUENZA TYPE B NEGATIVE FOR TYPE B (NEGATIVE)
[2025-08-22 19:48] LABS: SULFOSALICYLIC ACID,URINE 1+ (Negative)
[2025-08-22 19:49] LABS: SQUAMOUS EPITHELIAL CELL,UR Moderate /LPF (None Seen)
[2025-08-22] MEDS ORDERED: ONDA-104 PO (20:06)
[2025-08-22] MEDS ORDERED: ACET-3385 PO (20:06)
== END 2025-08-22 20:20 | disposition home or self-care (01) ==
LOC: EMS 17:27
DX: R53.1 Weakness (principal); R51.9 Headache, unspecified; R11.0 Nausea; E11.9 Type 2 diabetes mellitus without complications; E78.00 Pure hypercholesterolemia, unspecified; I10 Essential (primary) hypertension; J45.909 Unspecified asthma, uncomplicated; Z79.85 Long-term (current) use of injectable non-insulin antidiabetic drugs; Z87.19 Personal history of other diseases of the digestive system; Z79.899 Other long term (current) drug therapy; Z20.822 Contact with and (suspected) exposure to COVID-19
CPT/HCPCS: 99284; 96374; 87426; 80048; 81001; 82962; 84484; 84703; 85025; 87804; 36415; 93005; J2405; J7030; 81002

== ENCOUNTER 2025-09-28 04:17 | Emergency (ER) | payer MEDICAID ==
[~2025-09-28] VITALS: Ht 152.4 cm; Wt 84.1 kg
[~2025-09-28 04:17] MED LIST changes: +ACET-3385 PO; +ONDA-104 PO
[2025-09-28 04:21] VITALS: TEMP 98.2
[2025-09-28 06:05] LABS: CALCIUM, TOTAL 9.2 mg/dL (8.8-10.5); CREATININE 0.77 mg/dL (0.60-1.30); GLOMERULAR FILTR. RATE CALC > 60 mL/min (>60); GLUCOSE,RANDOM 306 mg/dL (70-110); SODIUM SERUM 138 mmol/L (136-145); UREA NITROGEN, BLOOD 15 mg/dL (7-18)
[2025-09-28 06:09] LABS: PLATELET COUNT (AUTO) 271 K/uL (150-450); RED BLOOD CELL COUNT(AUTO) 4.35 MIL/uL (4.00-5.20); RED CELL DISTRIBUTION WIDTH 13.5 % (11.5-14.5); WHITE BLOOD COUNT (AUTO) 8.2 K/uL (4.5-11.0)
[2025-09-28 06:10] LABS: APPEARANCE,URINE HAZY (CLEAR); GLUCOSE, URINE (UA) >=1000 mg/dL (NEGATIVE); LEUKOCYTE ESTERASE ,URINE SMALL (NEGATIVE); NITRATE,URINE NEGATIVE (NEGATIVE); OCCULT BLOOD,URINE NEGATIVE (NEGATIVE); SPECIFIC GRAVITIY, URINE 1.028 (1.003-1.030)
[2025-09-28 06:23] LABS: ASPARTATE AMINOTRANSFERASE 29.0 U/L (15-37); TOTAL PROTEIN, SERUM 7.1 g/dL (6.4-8.2)
[2025-09-28] MEDS ORDERED: SODIUM CHLORIDE 0.9% 100 ML ONE (06:45)
[2025-09-28] MEDS ORDERED: IOHEXOL 350 MG/ML 100 ML VIAL ONE (06:45)
[2025-09-28] MEDS: SODIUM CHLORIDE 0.9% 1,000 ML IV ONE (06:53)
[2025-09-28] MEDS: ACETAMINOPHEN 500 MG TABLET PO ONE (06:53)
[2025-09-28] MEDS: MORPHINE SULFATE 2 MG/ML SYRINGE IVP ONE (06:54)
[2025-09-28 07:27] LABS: SQUAMOUS EPITHELIAL CELL,UR Many /LPF (None Seen)
[2025-09-28] MEDS: CefTRIAXone 1 GM/DEXTROSE 50 ML IV ONE (07:40)
[2025-09-28 08:02] VITALS: BP 128/87; PULSE 88; RESP 18; O2SAT 98
[2025-09-28] MEDS ORDERED: IBUP-1492 PO (08:36)
[2025-09-28] MEDS ORDERED: CEFP200T12 PO (08:36)
[2025-09-28] MEDS: FLUCONAZOLE 150 MG TABLET PO ONE (08:46)
== END 2025-09-28 08:47 | disposition home or self-care (01) ==
LOC: EMS 04:17
DX: N12 Tubulo-interstitial nephritis, not specified as acute or chronic (principal); E11.9 Type 2 diabetes mellitus without complications; E78.00 Pure hypercholesterolemia, unspecified; I10 Essential (primary) hypertension; J45.909 Unspecified asthma, uncomplicated; N89.8 Other specified noninflammatory disorders of vagina; Z87.19 Personal history of other diseases of the digestive system; Z79.85 Long-term (current) use of injectable non-insulin antidiabetic drugs; Z79.899 Other long term (current) drug therapy
CPT/HCPCS: 99285; 74177; 96365; 96361; 80048; 80076; 81001; 82962; 83690; 84702; 85025; 87077; 87086; 36415; Q9967; J0696; J7030; J7050; 87186; J2270